=== PATIENT | female | born 1950 | race Caucasian/White ===

== ENCOUNTER 2018-07-04 09:33 | Day surgery (SDC) ==
[2018-07-04] MEDS ORDERED: BRIMONIDINE TARTRATE 0.2% OPTH SOL OP PRN (10:54)
[2018-07-04] MEDS ORDERED: BSS WITH EPINEPHRINE OP ONE (10:54)
[2018-07-04] MEDS ORDERED: DEX-MOXI-KETOR OPTH INJ 1/0.5/0.4 MG/ML IO ONE (10:54)
[2018-07-04] MEDS ORDERED: LIDOCAINE 1%/PHENYLEPHRINE 1.5% BSS (SURGERY) INTRAOCULA ONE (10:54)
[2018-07-04] MEDS ORDERED: LIDOCAINE 1% 20 ML MDV ID STA (10:54)
[2018-07-04] MEDS ORDERED: ZOFRAN 4 MG/2 ML IVP ONE (10:54)
[2018-07-04] MEDS: CYCLOGYL 2% OPTH OP PRN ×4 (10:55→11:06)
[2018-07-04] MEDS: BETADINE OPTH PREP OP PRN ×2 (10:55→11:08)
[2018-07-04] MEDS: TETRACAINE 0.5% UNIT-DOSE OP PRN ×2 (10:55→11:08)
[2018-07-04 11:17] VITALS: TEMP 98.5
[2018-07-04] MEDS ORDERED: VERSED ONE (11:30)
[2018-07-04] MEDS ORDERED: SUBLIMAZE ONE (11:30)
[2018-07-04] MEDS ORDERED: ZOFRAN 4 MG/2 ML ONE (11:30)
[2018-07-04 12:59] VITALS: BP 132/56
== END 2018-07-04 12:15 | disposition home or self-care (01) ==
LOC: SURG 09:33
PROVIDERS: ATTEND Ophthalmology
DX: H25.11 Age-related nuclear cataract, right eye (principal)

== ENCOUNTER 2018-08-02 07:54 | Day surgery (SDC) ==
[2018-08-02] MEDS: BETADINE OPTH PREP OP PRN ×2 (08:10→09:20)
[2018-08-02] MEDS: TETRACAINE 0.5% UNIT-DOSE OP PRN ×3 (08:10→09:36)
[2018-08-02] MEDS: CYCLOGYL 2% OPTH OP PRN ×3 (08:11→08:21)
[2018-08-02] MEDS ORDERED: ZOFRAN 4 MG/2 ML IVP ONE (08:20)
[2018-08-02] MEDS ORDERED: BRIMONIDINE TARTRATE 0.2% OPTH SOL OP PRN (08:20)
[2018-08-02] MEDS ORDERED: LIDOCAINE 1% 20 ML MDV ID STA (08:20)
[2018-08-02] MEDS: DEX-MOXI-KETOR OPTH INJ 1/0.5/0.4 MG/ML IO ONE ×2 (09:25→09:36)
[2018-08-02] MEDS: LIDOCAINE 1%/PHENYLEPHRINE 1.5% BSS (SURGERY) INTRAOCULA ONE ×2 (09:25→09:36)
[2018-08-02] MEDS: BSS WITH EPINEPHRINE OP ONE ×2 (09:25→09:36)
[2018-08-02] MEDS ORDERED: SUBLIMAZE ONE (09:27)
[2018-08-02] MEDS ORDERED: VERSED ONE (09:27)
[2018-08-02 11:59] VITALS: BP 126/77
[2018-08-02 12:43] VITALS: TEMP 97.4
== END 2018-08-02 10:35 | disposition home or self-care (01) ==
LOC: SURG 07:54
PROVIDERS: ATTEND Ophthalmology
DX: H25.12 Age-related nuclear cataract, left eye (principal)